=== PATIENT | male | born 1985 | race Caucasian/White ===

== ENCOUNTER 2024-02-29 07:53 | Emergency (ER) | payer OTHER ==
[~2024-02-29] VITALS: Ht 175.3 cm; Wt 72.6 kg
[2024-02-29] MEDS ORDERED: TETRAcaine 5 ML BOTTLE ONE ×2 (08:34→08:36)
[2024-02-29] MEDS ORDERED: FLUORESCEIN SODIUM OPHTH 1 EA STRIP ONE (08:39)
[2024-02-29] MEDS: TETRAcaine 5 ML BOTTLE EACHEYE ONE (08:40)
[2024-02-29] MEDS: FLUORESCEIN SODIUM OPHTH 1 EA STRIP OP ONE (08:41)
[2024-02-29 10:21] VITALS: BP 120/70; TEMP 98.2; O2SAT 98
== END 2024-02-29 10:25 | disposition home or self-care (01) ==
LOC: ER 08:16
DX: H16.001 Unspecified corneal ulcer, right eye (principal); F12.90 Cannabis use, unspecified, uncomplicated

== ENCOUNTER 2024-08-23 04:15 | Emergency (ER) | payer OTHER ==
[~2024-08-23] VITALS: Ht 175.3 cm; Wt 74.8 kg
[2024-08-23] MEDS ORDERED: AZITHROMYCIN 250 MG TABLET ONE (04:38)
[2024-08-23] MEDS ORDERED: AZIT250T13 PO (04:38)
[2024-08-23] MEDS ORDERED: PSEUDOEPHEDRINE HCL 30 MG TABLET ONE (04:39)
[2024-08-23] MEDS: PSEUDOEPHEDRINE HCL 30 MG TABLET PO ONE (04:41)
[2024-08-23] MEDS: AZITHROMYCIN 250 MG TABLET PO ONE (04:41)
[2024-08-23 04:46] VITALS: BP 105/62; TEMP 98.8; O2SAT 100
== END 2024-08-23 04:46 | disposition home or self-care (01) ==
LOC: ER 04:23
DX: J32.9 Chronic sinusitis, unspecified (principal); R09.81 Nasal congestion; F12.90 Cannabis use, unspecified, uncomplicated

== ENCOUNTER 2024-09-28 21:35 | Emergency (ER) | payer OTHER ==
[~2024-09-28] VITALS: Ht 172.7 cm; Wt 74.8 kg
[~2024-09-28 21:35] MED LIST: AZIT250T13 PO
[2024-09-28] MEDS ORDERED: LIDOCAINE 1% INJ 50 ML MDV IJ ONE (22:33)
[2024-09-28] MEDS ORDERED: ACETAMINOPHEN ES 500 MG TABLET ONE (23:02)
[2024-09-28] MEDS: ACETAMINOPHEN ES 500 MG TABLET PO ONE (23:05)
[2024-09-29 00:40] VITALS: BP 131/72; TEMP 98.4; O2SAT 99
== END 2024-09-29 00:40 | disposition home or self-care (01) ==
LOC: ER 21:39
DX: S01.81XA Laceration without foreign body of other part of head, initial encounter (principal); F12.90 Cannabis use, unspecified, uncomplicated; Z79.899 Other long term (current) drug therapy; W18.30XA Fall on same level, unspecified, initial encounter; Y93.89 Activity, other specified; Y92.89 Other specified places as the place of occurrence of the external cause; Y99.8 Other external cause status
CPT/HCPCS: 12013; 70450; 70486; 72110; 99284; A6403; J3490